=== PATIENT | female | born 1985 | race Caucasian/White ===

== ENCOUNTER 2016-09-18 22:01 | Emergency (ER) | payer OTHER | END 2016-09-19 03:26 | disposition home or self-care (01) | LOC: ER 22:01 | DX: J11.1 Influenza due to unidentified influenza virus with other respiratory manifestations (principal); Z20.828 Contact with and (suspected) exposure to other viral communicable diseases; Z88.0 Allergy status to penicillin | CPT/HCPCS: 87070; 87400; 87880; 99283 ==